=== PATIENT | female | born 1960 | race Caucasian/White ===

== ENCOUNTER 2020-05-21 11:12 | Inpatient (IN) | payer MEDICAID, SELFPAY ==
[2020-05-21 11:21] VITALS: BP 126/84; PULSE 107; RESP 14; TEMP 36.5; O2SAT 94; BMI 24.2
--- NOTE | 2020-05-21 11:28 | ECG_ITS ---
[facility] Test Date: 2020-05-21 Pat Name: Nguyễn Beck Department: Room: Gender: Female [employer] Folder Cloth: : 1960 Requested By: Dipak Vargas Order Number: [id number] Lorenzo MD: MELISSA DONOVAN Measurements Intervals [place] Rate: 102 P: 51 MO: 181 QRS: 19 QRSD: 81 T: 64 QT: 341 QTc: 445 Interpretive Statements SINUS TACHYCARDIA LEFT ATRIAL ENLARGEMENT [-0.15mV P WAVE IN V1/V2] LOW QRS VOLTAGE IN PRECORDIAL LEADS [QRS DEFLECTION < 1.0 mV IN CHEST LEADS] No previous ECG available for comparison Electronically Signed On 05-21-2020 21:23:41 GLUING MACHINE ADJUSTER by MELISSA DONOVAN [id number]
--- NOTE | 2020-05-21 11:52 | PC.PHAR ---
pt states she hasnt taken any of her prescription medications for over a month-medications include divalproex dr 250mg bid,aripiprazole 15mg 7.5mg daily,melatonon 3mg daily,vitamin d2 50,000 units q7d-pt states she was suppose to be taking lipitor 20 mg daily but hasnt taken it since october
[2020-05-21 12:02] LABS: Basophils % 0.2 %; Eosinophils # 0.1 10^3/uL (0.0-0.8); Eosinophils % 0.7 %; Hematocrit 42.7 % (37.0-47.0); Hemoglobin 14.4 g/dL (11.5-15.3); Lymphocytes % 23.7 %; Mean Corpuscular HGB Conc 33.7 g/dL (30.0-36.0); Mean Corpuscular Hemoglobin 36.7 pg (28.0-34.0); Mean Corpuscular Volume 108.9 fL (81-99); Monocytes # 0.4 10^3/uL (0.2-0.9); Monocytes % 5.3 %; Neutrophils # 5.73 10^3/uL (1.8-7.7); Neutrophils % 69.5 %; Nucleated Red Blood Cells % 0 %; Platelet Count 293 10^3/cmm (130-400); Red Blood Count 3.92 10^6/uL (4.1-5.3); Red Cell Distribution Width 17.9 % (12.1-15.1); White Blood Count 8.3 10^3/uL (4.0-10.0)
[2020-05-21 12:06] LABS: Add Urine Microscopic? NO
[2020-05-21 12:13] LABS: Urine Appearance Clear (CLEAR); Urine Color Yellow (Yellow); pH Urine 5 (5-7)
[2020-05-21 12:14] LABS: Bilirubin Urine Neg (Negative); Blood Urine Neg (Negative); Glucose Urine UA Norm (Normal); HCG Qualitative Urine. Negative (Negative); Ketones Urine Negative (Negative); Leukocyte Esterase Urine Negative (Negative); Nitrate Urine Negative (Negative); Protein Urine Neg (Negative); Urobilinogen Urine Norm (Negative)
[2020-05-21 12:18] LABS: Amphetamines Screen Urine Negative (Negative); Barbiturates Screen Urine Negative (Negative); Benzodiazepines Screen Urine Negative (Negative); Cocaine Screen Urine Negative (Negative); Opiate Screen Urine Negative (Negative); PCP Screen Urine Negative (Negative); THC Screen Urine Negative (Negative)
[2020-05-21 12:30] LABS: Alanine Aminotransferase 9 U/L (0-33); Albumin Level 4.5 g/dL (3.5-5.2); Alkaline Phosphatase 95 IU/L (35-105); Anion Gap 19.3 (5-19); Aspartate Amino Transferase 13 U/L (0-32); Blood Urea Nitrogen 10 mg/dL (8-23); Calcium 9.2 mg/dL (8.5-10.5); Carbon Dioxide 20 mmol/L (22-29); Chloride 106 mmol/L (98-107); Glucose 103 mg/dL (65-115); Osmolality Calculated 291 mOsm/kg (285-295); Potassium 4.3 mmol/L (3.5-5.1); SARS Covid-2 Antigen Negative (Negative); Sodium 141 mmol/L (136-145); Thyroid Stimulating Hormone 1.24 uIU/mL (0.27-4.20); Total Bilirubin 0.2 mg/dL (0.15-1.2)
[2020-05-21 12:32] LABS: Acetaminophen < 5.0 ug/mL (10-30); Alcohol Level < 10 mg/dL (0-10); Salicylate < 0.3 mg/dL (3-10)
--- NOTE | 2020-05-21 12:34 | W.ED.PSYCH ---
HPI - Psych General: Chief Complaint: Psychiatric Symptoms Stated Complaint: Stress Time Seen by Provider: 05/21/20 11:22 Source: patient History of Present Illness: MD complaint: suicidal ideation and feels depressed Duration: constant Context: significant life stressor Review of Systems General: Reports: 10 or more systems reviewed and unremarkable except in HPI and below Const: Denies: fever(s) Eyes: Denies: change in vision ENMT: Denies: throat pain Card: Denies: chest pain Resp: Denies: dyspnea GI: Denies: abdominal pain : Denies: flank pain, difficulty voiding or dysuria Musc: Denies: neck pain or back pain Neuro: Denies: headache(s) Physical Exam Const: COMMON NORMALS: no acute distress, average body habitus, patient oriented x3, no limitations, healthy appearing, alert and well nourished HENMT: COMMON NORMALS: normocephalic, atraumatic, hearing grossly normal bilaterally, external ears normal, EAC's normal, TM's normal bilaterally, Normal external nose present, Normal nasal mucous membranes and turbinates present, moist oral mucous membranes, oropharynx normal, dentition normal and gingiva normal HEAD & SCALP: normocephalic and atraumatic NOSE: Normal external nose present and Normal nasal mucous membranes and turbinates present EXTERNAL EAR: Yes external ears normal EXTERNAL AUDITORY CANAL: EAC's normal TYMPANIC MEMBRANE: TM's normal bilaterally Eye: COMMON NORMALS: Equal, round and reactive pupils present, EOMs intact bilaterally, conjunctivae normal, no scleral icterus, no papilledema, normal visual welsh by confrontation and fundi normal bilaterally CONJUNCTIVA: Yes conjunctivae normal PUPIL: Yes Equal, round and reactive pupils present DIRECT OPHTHALMOSCOPY: Yes no papilledema and Yes fundi normal bilaterally Neck/C-Spine: COMMON NORMALS: full ROM, no lymphadenopathy, supple, no meningeal signs, Thyroid normal and No carotid bruits THYROID: Thyroid normal Chest: COMMONS NORMALS: normal inspection of the chest, normal palpation of entire chest wall, normal inspection of the breasts and normal palpation of the breasts Breast/axilla inspection: Yes normal inspection of the breasts BREAST/AXILLA PALPATION: Yes normal palpation of the breasts Resp: COMMON NORMALS: normal respiratory effort, No retractions, No use of accessory muscles, clear to auscultation bilaterally and percussion normal AUSCULTATION: clear to auscultation bilaterally PERCUSSION: percussion normal GI: COMMON NORMALS: Normal to inspection, nondistended, normoactive bowel sounds present, Soft to palpation, non-tender, No hepatosplenomegaly present, no masses and no bruits PALPATION: Yes Soft to palpation and Yes No hepatosplenomegaly present Neuro: COMMON NORMALS: patient oriented x3 SENSORIUM/ORIENTATION: Yes alert MENINGEAL SIGNS: Yes no meningeal signs Psych: COMMON NORMALS: Normal thought process present and speech normal APPEARANCE: Yes grossly normal ATTITUDE: Yes Withdrawn affect present ACTIVITY/MOTOR BEHAVIOR: Yes appropriate eye contact SPEECH: Yes normal speech MOOD & AFFECT: Yes depressed mood and Yes tearful THOUGHT PROCESS: Normal thought process present THOUGHT CONTENT: Yes Suicidality present ATTENTION/CONCENTRATION: Yes attention grossly intact MEMORY/COGNITION: Yes memory grossly intact MDM - Psych MDM Narrative: Medical decision making narrative: Patient states that she was suicidal. She states that she has been thinking of hanging herself and in fact even thought online and googled how to tie a knot to hang herself. She has significant life stressors at this time including marital problems and homelessness. Patient is medically cleared. Discussed with Dr. Mathews who accepted patient. Lab Data: Labs: Lab Results 05/21/20 05/21/20 05/21/20 Range/Units 11:39 11:39 11:39 WBC (4.0-10.0) 10^3/ uL RBC (4.1-5.3) 10^6/u L Hgb (11.5-15.3) g/dL Hct (37.0-47.0) % MCV (81-99) fL MCH (28.0-34.0) pg MCHC (30.0-36.0) g/dL RDW (12.1-15.1) % Plt Count (130-400) 10^3/c mm MPV (7.4-10.4) fL Neut % (Auto) % Lymph % (Auto) % [place] % (Auto) % Eos % (Auto) % Baso % (Auto) % Neut # (Auto) (1.8-7.7) 10^3/u L Lymph # (Auto) (0.8-4.8) 10^3/u L [place] # (Auto) (0.2-0.9) 10^3/u L Eos # (Auto) (0.0-0.8) 10^3/u L Baso # (Auto) (0.0-0.1) 10^3/u L Nucleated RBC % (a uto) % Nucleated RBCs # /100WBC Sodium (136-145) mmol/L Potassium (3.5-5.1) mmol/L Chloride (98-107) mmol/L Carbon Dioxide (22-29) mmol/L Anion Gap (5-19) BUN (8-23) mg/dL Creatinine (0.5-0.9) mg/dL GFR Calculation (90-130) mL/min Glucose (65-115) mg/dL Calculated Osmolal ity (285-295) mOsm/k g Calcium (8.5-10.5) mg/dL Total Bilirubin (0.15-1.2) mg/dL AST (0-32) U/L ALT (0-33) U/L Alkaline Phosphata se (35-105) IU/L Total Protein (6.6-8.7) g/dL Albumin (3.5-5.2) g/dL Globulin (1.3-4.6) g/dL TSH (0.27-4.20) uIU/ mL HCG, Qual Negative (Negative) Urine Color Yellow (Yellow) Urine Appearance Clear (CLEAR) Urine pH 5 (5-7) Ur Specific Gravit y 1.020 (1.005-1.030) Urine Protein Neg (Negative) Urine Glucose (UA) Norm (Normal) Urine Ketones Negative (Negative) Urine Blood Neg (Negative) Urine Nitrate Negative (Negative) Urine Bilirubin Neg (Negative) Urine Urobilinogen Norm (Negative) mg/dL Ur Leukocyte Feli ase Negative (Negative) Salicylates (3-10) mg/dL Urine Opiates Scre en Negative (Negative) ng/mL Acetaminophen (10-30) ug/mL Ur Barbiturates Sc reen Negative (Negative) ng/mL Ur Phencyclidine S crn Negative (Negative) ng/mL Ur Amphetamines Sc reen Negative (Negative) ng/mL U Benzodiazepines Scrn Negative (Negative) ng/mL Urine Cocaine Scre en Negative (Negative) ng/mL U Marijuana (THC) Screen Negative (Negative) ng/mL Ethyl Alcohol (0-10) mg/dL SARS-CoV-2 Ag (Rap id) (Negative) 05/21/20 05/21/20 05/21/20 Range/Units 11:49 11:49 11:49 WBC 8.3 (4.0-10.0) 10^3/ uL RBC 3.92 L (4.1-5.3) 10^6/u L Hgb 14.4 (11.5-15.3) g/dL Hct 42.7 (37.0-47.0) % MCV 108.9 H (81-99) fL MCH 36.7 H (28.0-34.0) pg MCHC 33.7 (30.0-36.0) g/dL RDW 17.9 H (12.1-15.1) % Plt Count 293 (130-400) 10^3/c mm MPV 9.0 (7.4-10.4) fL Neut % (Auto) 69.5 % Lymph % (Auto) 23.7 % [place] % (Auto) 5.3 % Eos % (Auto) 0.7 % Baso % (Auto) 0.2 % Neut # (Auto) 5.73 (1.8-7.7) 10^3/u L Lymph # (Auto) 2.0 (0.8-4.8) 10^3/u L [place] # (Auto) 0.4 (0.2-0.9) 10^3/u L Eos # (Auto) 0.1 (0.0-0.8) 10^3/u L Baso # (Auto) 0.0 (0.0-0.1) 10^3/u L Nucleated RBC % (a uto) 0 % Nucleated RBCs # 0.0 /100WBC Sodium 141 (136-145) mmol/L Potassium 4.3 (3.5-5.1) mmol/L Chloride 106 (98-107) mmol/L Carbon Dioxide 20 L (22-29) mmol/L Anion Gap 19.3 H (5-19) BUN 10 (8-23) mg/dL Creatinine 0.6 (0.5-0.9) mg/dL GFR Calculation 102.0 (90-130) mL/min Glucose 103 (65-115) mg/dL Calculated Osmolal ity 291 (285-295) mOsm/k g Calcium 9.2 (8.5-10.5) mg/dL Total Bilirubin 0.2 (0.15-1.2) mg/dL AST 13 (0-32) U/L ALT 9 (0-33) U/L Alkaline Phosphata se 95 (35-105) IU/L Total Protein 9.0 H (6.6-8.7) g/dL Albumin 4.5 (3.5-5.2) g/dL Globulin 4.5 (1.3-4.6) g/dL TSH 1.24 (0.27-4.20) uIU/ mL HCG, Qual (Negative) Urine Color (Yellow) Urine Appearance (CLEAR) Urine pH (5-7) Ur Specific Gravit y (1.005-1.030) Urine Protein (Negative) Urine Glucose (UA) (Normal) Urine Ketones (Negative) Urine Blood (Negative) Urine Nitrate (Negative) Urine Bilirubin (Negative) Urine Urobilinogen (Negative) mg/dL Ur Leukocyte Feli ase (Negative) Salicylates < 0.3 L (3-10) mg/dL Urine Opiates Scre en (Negative) ng/mL Acetaminophen < 5.0 L (10-30) ug/mL Ur Barbiturates Sc reen (Negative) ng/mL Ur Phencyclidine S crn (Negative) ng/mL Ur Amphetamines Sc reen (Negative) ng/mL U Benzodiazepines Scrn (Negative) ng/mL Urine Cocaine Scre en (Negative) ng/mL U Marijuana (THC) Screen (Negative) ng/mL Ethyl Alcohol < 10 (0-10) mg/dL SARS-CoV-2 Ag (Rap id) Negative (Negative) Discharge Plan Discharge Patient Disposition: Psych Hosp/Unit w Plan Readm Clinical Impression: Suicidal ideation Condition: Stable Coding Level of Care Code ED Sr. Merchandise Planner for Twing Fwd Exam Comprehensive
[2020-05-21 13:41] VITALS: RESP 14; TEMP 36.5; O2SAT 94
[2020-05-21 13:52] VITALS: BP 155/79; PULSE 103; RESP 18; TEMP 36.7; O2SAT 91
[2020-05-21] MEDS: nicotine 21 mg Patch 1 PATCH TRANSDERMA (14:11)
[2020-05-21 19:25] VITALS: BP 117/62; PULSE 91; RESP 18; TEMP 36.3; O2SAT 96
[2020-05-21] MEDS: trazodone 50 mg Tablet PO (19:47)
[2020-05-21] MEDS: hyDROXYzine 25 mg Capsule 50 MG PO (19:47)
[2020-05-22 06:00] VITALS: BP 129/73; PULSE 94; RESP 18; TEMP 36.6; O2SAT 90
[2020-05-22] MEDS: nicotine 21 mg Patch 1 PATCH TRANSDERMA (08:29)
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
[2020-05-22] MEDS: sertraline 50 mg Tablet 25 MG PO (11:22)
[2020-05-22 12:27] LABS: Folate Level 7.4 ng/mL (4.8-37.3)
[2020-05-22 12:28] LABS: Vitamin B12 364 pg/mL (232-1245)
[2020-05-22 14:00] VITALS: BP 124/70; PULSE 88; RESP 18; TEMP 36.6; O2SAT 92
[2020-05-22] MEDS: acetaminophen 325 mg Tablet 650 MG PO (15:02)
[2020-05-22 19:50] LABS: Globulin 2.6 g/dL (1.3-4.6); Total Protein 7.1 g/dL (6.6-8.7)
[2020-05-22] MEDS: hyDROXYzine 25 mg Capsule 50 MG PO (19:51)
[2020-05-22] MEDS: trazodone 50 mg Tablet PO (19:52)
[2020-05-22] MEDS: prazosin 1 mg Capsule PO (19:52)
[2020-05-22 19:56] VITALS: BP 105/58; PULSE 106; RESP 15; TEMP 36.8; O2SAT 93
[2020-05-23 06:00] VITALS: BP 78/53; PULSE 100; RESP 16; TEMP 36.9; O2SAT 93
[2020-05-23] MEDS: acetaminophen 325 mg Tablet 650 MG PO ×3 (06:21→19:48)
[2020-05-23] MEDS: sertraline 50 mg Tablet 25 MG PO (07:54)
[2020-05-23] MEDS: nicotine 21 mg Patch 1 PATCH TRANSDERMA (07:57)
--- NOTE | 2020-05-23 10:59 | PM.NPN ---
Subjective NPU Subjective: Interval history: Patient reporting improvement in mood, states depressive symptoms are 5-6/10 Denies any interval suicidal ideation Continues to report occasional reexperiencing, trauma related symptoms but reports improvement Patient reports being future oriented and looking forward to going to [facility] at discharge Reports being compliant with medication, denies any medication side effects Reports improved sleep last evening Mental Status Exam MSE Comments: Calm, cooperative, interactive, better groomed, kempt, good eye contact Psychomotor activity is neither increased nor decreased, no agitation Speech is normal volume, normal rate, spontaneous, fair articulation, not pressured I feel a little better, congruent, not labile Alert and oriented to person, place, time, situation Memory and concentration are fair per interview Thought process, linear, no flight of ideas, no looseness of associations Thought content, no delusions, no hallucinations, no suicidal homicidal ideation Insight and judgment appear to be intact Vitals/I&O/Wt Last Vital Signs Temp 98.5 F 05/23/20 06:00 Pulse 100 05/23/20 06:00 Resp 16 05/23/20 06:00 BP 78/53 05/23/20 06:00 Pulse Ox 93 05/23/20 06:00 Weight last 48 hrs Weight 68.039 kg Data NPU : 05/21/20 11:49 05/21/20 11:49 A&P Assessment and plan (1) Suicidal ideation: Status: Acute (2) Depressive disorder: Status: Acute (3) Posttraumatic stress disorder: Status: Acute (4) History of traumatic brain injury: Status: Acute Additional A&P Information Continues to report some depressive symptoms but states she feels some improvement, continues to have some PTSD symptoms, improving sleep, denies any interval suicidal ideation INCREASE to sertraline 50 mg daily CONTINUE other medication Anticipate discharge tomorrow to [facility] Involuntary Hold Information 96 Hour Hold: 96 Hour Involuntary Admission: No Attestations NPU Medical Necessity Statement*: Continues require psychiatric hospitalization for medication stabilization Coding Level of Care Code Acute International Freight Forwarder for Roman Raphael Diagnoses Suicidal ideation R45.851 Depressive disorder F32.9 Posttraumatic stress disorder F43.10 History of traumatic brain injury Z87.820
[2020-05-23 14:00] VITALS: BP 137/74; PULSE 101; RESP 16; TEMP 36.9; O2SAT 95
[2020-05-23 19:51] VITALS: BP 139/78; PULSE 97; RESP 15; TEMP 36.7; O2SAT 96
[2020-05-23] MEDS: hyDROXYzine 25 mg Capsule 50 MG PO (20:56)
[2020-05-23] MEDS: prazosin 1 mg Capsule PO (20:56)
--- NOTE | 2020-05-23 21:17 | PC.NURSE ---
PM ASSESSMENT PT LUNG/HEART SOUNDS ARE WNL. PT SAYS THAT SHE IS HAS GENERALIZED BODY PAIN/ACHES RATED A 5 ON A 1-10 PAIN SCALE. MED NURSE NOTIFIED. PT RECEIVED TYLENOL 650MG PO. PT REPORTS A DECREASE IN HER PAIN LEVEL AND IS ATTEMPTING TO REST AT THIS TIME. PT DENIES AH/VH, DENIES SI/HI. PT IS HOPEFUL AND OPTIMISTIC REGARDING PLACEMENT IN [facility]. PT HAS HER CERTIFIED NURSES AIDE TRAINING AND WILL BE ABLE TO FIND WORK
--- NOTE | 2020-05-23 23:37 | PC.NURSE ---
@2100-nicotine patch removed
[2020-05-24 06:00] VITALS: BP 124/67; PULSE 91; RESP 17; TEMP 36.8; O2SAT 90
[2020-05-24] MEDS: sertraline 50 mg Tablet PO (07:56)
[2020-05-24] MEDS: nicotine 21 mg Patch 1 PATCH TRANSDERMA (07:56)
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
[2020-05-24 09:49] VITALS: BP 124/67; PULSE 91; RESP 17; TEMP 36.8; O2SAT 90
[2020-05-26 09:49] LABS: Vit D 1,25 (Oh)2, Total 31 pg/mL (18-72); Vit D2 1,25 (Oh)2 <8 pg/mL; Vit D3 1,25 (Oh)2 31 pg/mL
== END 2020-05-24 11:12 | disposition home or self-care (01) | DRG 881 ==
LOC: ER 13:07 → NP 13:34
PROVIDERS: Admitting Provider Psychiatry & Neurology Psychiatry; Emergency Provider Emergency Medicine; PCP Family Medicine; Visit Provider Psychiatry & Neurology Psychiatry
DX: F32.9 Major depressive disorder, single episode, unspecified (principal); R45.851 Suicidal ideations; Z91.419 Personal history of unspecified adult abuse; F43.10 Post-traumatic stress disorder, unspecified; Z87.820 Personal history of traumatic brain injury
CPT/HCPCS: 12345; 36415; 80053; 80306; 80307; 81003; 81025; 82607; 82652; 82746; 84443; 85025; 87426; 93005; 99284